=== PATIENT | male | born 1975 | race Caucasian/White ===

== ENCOUNTER → 2016-07-20 | Outpatient (CLI) | payer BC ==
[~2016-07-20] MED LIST: HYDR-3812 PO
--- NOTE | 2016-07-20 17:16 | Diagnostic Imaging Report ---
INDICATION: Chest pain-unspecified, obesity, tobacco use. PA and lateral views of the chest are obtained. COMPARISON: No previous study is available for comparison at this time. FINDINGS: Heart size and pulmonary vasculature are within normal limits, and the lungs are clear, bilaterally. IMPRESSION: Unremarkable chest. Dictated by: Dictated on workstation # [id number]
== END ==
LOC: RAD 15:47
PROVIDERS: ATTEND Internal Medicine Cardiovascular Disease
DX: R07.9 Chest pain, unspecified (principal); E66.9 Obesity, unspecified; Z72.0 Tobacco use
CPT/HCPCS: 71020

== ENCOUNTER → 2016-08-12 | Outpatient (CLI) | payer BC ==
--- NOTE | 2016-08-12 16:05 | ECHOCARDIOGRAPHY REPORT ---
DATE OF SERVICE: DATE OF EXAM: 08/12/2016 REFERRING PHYSICIAN: Dr. Raphael INDICATION: Obesity, chest pain. MEASUREMENT: LVID end diastolic 4.9, IVS thickness 1.0, LVPW thickness 1.0, left atrial diameter 3.9, ejection fraction 60%. FINDINGS: 1. Technical quality is good. 2. Left ventricle is normal in size with normal contractility, systolic function appears to be normal. Estimated ejection fraction 60%. 3. The left atrium is normal in size. No clot or thrombus were seen within the left atrium. 4. The right atrium and right ventricle are normal in size. No clot or thrombus were seen within the right side. 5. Mitral valve is normal in morphology with mild mitral regurgitation noted by color Doppler flow, no mitral valve prolapse, no mitral valve stenosis. 6. Aortic valve is trileaflet with normal opening and closing pattern. No significant aortic stenosis or regurgitation was seen. 7. Tricuspid valve is normal in morphology with mild tricuspid regurgitation noted by color Doppler flow, Doppler echo of the tricuspid valve. Estimated pulmonary artery pressure of 17 plus right atrial pressure. 8. Pulmonic valve is functioning normally. 9. No pericardial effusion. CONCLUSION: 1. Normal left ventricular size and systolic function. Estimated ejection fraction 60%. 2. Mild mitral and tricuspid regurgitation. 3. Estimated pulmonary artery pressure of 25 mmHg. Job ID: [id number] DocumentID: [id number] Dictated Date: 08/12/2016 13:16:25 Director Of Instrumental Music Date: 08/12/2016 15:09:41 Dictated By: FAHAD PARRA MD
== END ==
LOC: CARD 08:59
PROVIDERS: ATTEND Internal Medicine Cardiovascular Disease
DX: R07.9 Chest pain, unspecified (principal); E66.9 Obesity, unspecified; Z72.0 Tobacco use
CPT/HCPCS: 93017; 93306

== ENCOUNTER 2016-11-04 17:35 | Emergency (ER) | payer BC ==
[~2016-11-04] VITALS: Ht 175.3 cm; Wt 107.0 kg
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
[2016-11-04] MEDS ORDERED: TETANUS,DIPTH,PERTUSS P/F (BOOSTRIX) 0.5 ML VIAL IM STA (18:33)
[2016-11-04] MEDS ORDERED: morphine INJ 10 MG/ML 1ML (SYR OR VIAL) IM STA (18:33)
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
[2016-11-04] MEDS ORDERED: BACITRACIN OINTMENT 28 GM TUBE TOP SCH (18:45)
[2016-11-04] MEDS ORDERED: HYDR-3816 PO (19:14)
[2016-11-04 19:27] VITALS: BP 144/88
== END 2016-11-04 19:27 | disposition home or self-care (01) ==
LOC: EDUNIT# 17:35 → ER 17:37
DX: Z01.89 Encounter for other specified special examinations (principal)
CPT/HCPCS: 90471; 90715; 99284

== ENCOUNTER 2017-11-15 05:40 | Outpatient (CLI) | payer BC ==
[~2017-11-15] VITALS: Ht 175.3 cm; Wt 117.0 kg
[~2017-11-15 05:40] MED LIST changes: +ACHD5005 PO; +HYDR-34 PO; -HYDR-3812 PO
== END 2017-11-15 14:00 | disposition home or self-care (01) ==
LOC: PREOP 05:40
PROVIDERS: ATTEND Surgery
DX: Z01.818 Encounter for other preprocedural examination (principal)

== ENCOUNTER 2017-11-18 06:42 | Day surgery (SDC) | payer BC ==
[~2017-11-18] VITALS: Ht 175.3 cm; Wt 117.0 kg
[2017-11-18 07:15] VITALS: BP 136/88
[2017-11-18] MEDS ORDERED: ceFAZolin 1 GM/NS 50 ML IVPB IV ONE ×2 (07:15)
[2017-11-18] MEDS ORDERED: ceFAZolin INJECTION 1,000 MG in NS (IVPB) 50 ML IV ONE (07:30)
[2017-11-18] MEDS: LACTATED RINGERS 1,000 ML IV PRN ×2 (07:30→09:52)
[2017-11-18] MEDS ORDERED: LIDOCAINE PF 2% 5 ML (XYLOCAINE) VIAL ONE (08:24)
[2017-11-18] MEDS ORDERED: ROCURONIUM 10 MG/ML 5 ML SYRINGE IV ONE (08:24)
[2017-11-18] MEDS ORDERED: fentaNYL INJECTION 100 MCG/2 ML AMP ONE (08:24)
[2017-11-18] MEDS ORDERED: ONDANSETRON 4 MG/2 ML (SDV) Z0FRAN ONE (08:24)
[2017-11-18] MEDS ORDERED: DEXAMETHASONE 10 MG/ML (DECADRON) 1 ML VIAL ONE (08:24)
[2017-11-18] MEDS ORDERED: proPOfol 200 MG/20 ML (DIPRIVAN) VIAL IV ONE (08:24)
[2017-11-18] MEDS ORDERED: MIDAZOLAM 2 MG/2 ML (VERSED) VIAL ONE (08:26)
[2017-11-18] MEDS ORDERED: BUP/EPI 0.5% 1:200,000 (SENSORCAINE) 30 ML VIAL ONE (08:39)
--- NOTE | 2017-11-18 09:03 | Progress Note-Pre Operative ---
Pre-Operative Progress Note H&P Reviewed The H&P was reviewed, patient examined and no changes noted. Date Seen by Provider: Nov 18, 2017 Time Seen by Provider: 08:00 Date H&P Reviewed: Nov 18, 2017 Time H&P Reviewed: 08:00 Pre-Operative Diagnosis: non-reducible right inguinal hernia PRISCILLA MARQUIS MD Nov 18, 2017 9:03 am
[2017-11-18] MEDS ORDERED: oxyCODONE/APAP 5/325MG (PERCOCET 5) TABLET PO PRN (09:15)
[2017-11-18] MEDS ORDERED: ONDANSETRON 4 MG/2 ML (SDV) Z0FRAN IVP PRN ×2 (09:15→10:30)
[2017-11-18] MEDS ORDERED: morphine INJ 10 MG/ML 1ML (SYR OR VIAL) IVP PRN ×2 (09:15→10:30)
[2017-11-18] MEDS ORDERED: ACETAMINOPHEN 325 MG TABLET PO PRN (09:15)
--- NOTE | 2017-11-18 10:19 | Progress Note-Post Operative ---
Post-Operative Progess Note Surgeon (s)/Medical Records Coordinator (s) Surgeon PRISCILLA MARQUIS MD Medical Records Coordinator: none Pre-Operative Diagnosis non-reducible right inguinal hernia Post-Operative Diagnosis incarcerated right indirect inguinal hernia Procedure & Operative Findings Date of Procedure 11/18/17 Procedure Performed/Findings laparoscopic right inguinal hernia repair with mesh. Anesthesia Type GET Estimated Blood Loss Estimated blood loss (mL): minimal Specimens/Packing Specimens Removed none PRISCILLA MARQUIS MD Nov 18, 2017 10:19 am
[2017-11-18] MEDS ORDERED: SEVOFLURANE (ULTANE) 15 ML INHAL SOLN ONE (10:21)
[2017-11-18] MEDS ORDERED: HYDR-34 PO (10:22)
--- NOTE | 2017-11-18 10:22 | Discharge Inst-Surgical ---
D/C Lap Instructions-KANDIS New, Converted, or Re-Newed RX: RX on Chart Follow Up Appt in 2 weeks Activity as tolerated No driving for 24 hours No driving while on pain medications Incentive Spirometry use every 2 hours while awake Regular Diet Symptoms to Report: Fever over 101 degree F, Nausea/Vomiting Infection Signs and Symptoms to report: Increased redness, Foul odor of wound, Increased drainage Bathing instructions: May shower Operative Area Clean/Dry; Keep incision clean/dry If any problems/questions: Contact your physician or go to Emergency Room PRISCILLA MARQUIS MD Nov 18, 2017 10:22 am
[2017-11-18] MEDS ORDERED: MEPERIDINE (DEMEROL) INJ 50 MG/ML IVP PRN (10:30)
[2017-11-18] MEDS ORDERED: PROMETHAZINE INJ 25 MG/ML (PHENERGAN) AMP IVP PRN (10:30)
[2017-11-18] MEDS ORDERED: HYDROmorphone 1 MG/ML (DILAUDID) 1 ML SYRINGE IV PRN (10:30)
[2017-11-18] MEDS ORDERED: NEOSTIGMINE 1 MG/ML 5 ML SYRINGE ONE (10:32)
[2017-11-18] MEDS ORDERED: SUCCINYLCHOLINE INJ 100 MG/5 ML SYR ONE (10:32)
[2017-11-18] MEDS ORDERED: GLYCOPYRROLATE 0.2 MG/ML (ROBINUL) 2 ML VIAL ONE (10:32)
[2017-11-18 11:30] VITALS: BP 127/82
[2017-11-18 11:31] VITALS: BP 127/82
[2017-11-18 12:00] VITALS: BP 122/69
--- NOTE | 2017-11-18 12:21 | OPERATIVE REPORT ---
DATE OF SERVICE: 11/18/2017 ATTENDING PRIMARY CARE PHYSICIAN: Dr. Barbosa. PREOPERATIVE DIAGNOSIS: Symptomatic incarcerated right inguinal hernia. POSTOPERATIVE DIAGNOSIS: Symptomatic incarcerated right indirect inguinal hernia with a cord lipoma. PROCEDURE: Laparoscopic right inguinal hernia repair with mesh. SURGEON: Theodore Tang MD. ANESTHESIA: General endotracheal. ESTIMATED BLOOD LOSS: Minimal. FINDINGS: Incarcerated right indirect inguinal hernia with a cord lipoma. DISPOSITION: The patient tolerated the procedure well. INDICATIONS FOR PROCEDURE: The patient is a 42-year-old male with a palpable bulge in the right inguinal region that he had noted approximately one week prior to his office visit. He states that he was moving around in bed and felt a pain and a straining sensation in the right inguinal region. The following morning, he felt a palpable bulge. He states that he had never felt this before. He was seen by his physician and a suspected right inguinal hernia identified and verified in the office. 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 Upon examination, he has an incarcerated right inguinal hernia. DESCRIPTION OF PROCEDURE: The patient was brought to the operating room and laid supine on the table. After adequate IV pain and sedating medications and general endotracheal intubation, the abdomen and perineum were prepped and draped in a standard surgical fashion. A 0.5% Marcaine with epinephrine was then used to incise the overlying skin in the infraumbilical rim and a crescent shaped skin incision made using a 15 blade. A Veress needle inserted and the abdominal wall was retracted anteriorly using a sharp towel clamp. The opening pressure was 0 mmHg. The abdomen was insufflated to 15 mmHg pressure. The Veress needle was removed and a 10 mm trocar placed followed by a 10 mm 45-degree angle laparoscope visualizing the peritoneal cavity. A 4-quadrant abdominal exploration was performed. A right inguinal hernia was identified. There was nothing within the hernia sac; however, the bulge is still identified, most likely consistent with a cord lipoma or preperitoneal fat. There was no left inguinal hernia component. Under direct visualization, we then proceeded to place bilateral 5 mm ports after the skin and peritoneal lining were anesthetized using a 0.5% Marcaine with epinephrine and a transverse skin incision made using a 15 blade. The patient was then placed in Trendelenburg position. The peritoneal lining was then opened starting laterally towards the conjoint tendon and inguinal ligament. We then proceeded medially to Jai's ligament. We then proceeded with our inferior dissection encompassing the entire hernia sac. There was incarcerated fat that appeared to be preperitoneal fat versus a cord lipoma. This was done using blunt dissection as well as using the Sonicision. The cord and its contents identified and spread throughout the process. Good hemostasis was observed. A medium size 3DMax polypropylene mesh was then placed into the defect and the omentum placed and tacked to the Jai's ligament medially using a SorbaFix and to the inguinal ligament laterally. The peritoneal lining was then placed over the mesh and a few tacks were placed to hold it into place with visualization of good hemostasis. The 10 mm port site fascia and peritoneum were then closed under direct visualization using a Nabor-Vishnu device and 0 Vicryl suture. The abdomen was desufflated and remaining ports were removed. All skin incisions were closed using 4-0 Monocryl running subcuticular sutures. Wounds were then cleaned and covered with Dermabond. The patient tolerated the procedure well. We will start IV and oral pain medication as well as a clear liquid diet. Once he is tolerating clears, has good pain control with oral pain medications and ambulating well, we will discharge him home. He will be instructed again to do no heavy lifting or exertion for the next six weeks. Job ID: [id number] DocumentID: [id number] Dictated Date: 11/18/2017 10:33:28 Mechanical Process Engineer Date: 11/18/2017 12:20:54 Dictated By: PRISCILLA MARQUIS MD
[2017-11-18 12:30] VITALS: BP 130/83
--- NOTE | 2017-11-18 13:34 | Anesthesia-General Post-Op ---
General Patient Condition Mental Status/LOC: Same as Preop Cardiovascular: Satisfactory Nausea/Vomiting: Absent Respiratory: Satisfactory Pain: Controlled Complications: Absent Post Op Complications Complications None Follow Up Care/Instructions Patient Instructions None needed. Anesthesia/Patient Condition Patient Condition Patient is doing well, no complaints, stable vital signs, no apparent adverse anesthesia problems. No complications reported per nursing. D/C home per [facility] [place] Criteria: Yes ERIBERTO ASHFORD CRNA Nov 18, 2017 13:34
== END 2017-11-18 12:45 | disposition home or self-care (01) ==
LOC: SDC 06:42
PROVIDERS: ATTEND Surgery
DX: K40.30 Unilateral inguinal hernia, with obstruction, without gangrene, not specified as recurrent (principal); Z87.891 Personal history of nicotine dependence
CPT/HCPCS: 87081; 94664

== ENCOUNTER 2021-11-08 16:38 | Emergency (ER) | payer BC ==
[~2021-11-08] VITALS: Ht 175.3 cm; Wt 104.3 kg
[2021-11-08] MEDS ORDERED: ONDANSETRON 4 MG/2 ML (SDV) Z0FRAN IVP ONE (17:00)
[2021-11-08] MEDS ORDERED: NS IV 1000 ML 1,000 ML IV SCH (17:00)
[2021-11-08] MEDS ORDERED: fentaNYL INJ 100 MCG/2 ML AMP IVP ONE (17:00)
--- NOTE | 2021-11-08 17:01 | ED Abdominal Pain ---
General Chief Complaint: Abdominal/GI Problems Stated Complaint: ABD PAIN Source of Information: Patient, Family () Exam Limitations: No Limitations History of Present Illness Date Seen by Provider: Nov 08, 2021 Time Seen by Provider: 16:48 Initial Comments Patient is a 46-year-old male who presents to the emergency department with a chief complaint of right upper quadrant, epigastric abdominal pain onset about 4 hours ago. Patient was at a family reunion when he had a rather sudden onset of the pain. He did have some nausea and vomit one time. He remains nauseated. Denies fevers or chills. No chest pain, shortness of breath. No URI symptoms. Has had prior right inguinal hernia repair otherwise no operations on his abdomen. Nothing makes the pain any better or any worse. He had a normal bowel movement this morning. Nonblack nonbloody. No problems with urination. He has not taken anything for the pain. He was able to eat breakfast this morning, e ggs brown without any issues at the time of eating. he does occasionally have heartburn. He is not on any daily medications. No allergies to medications. All other review of systems reviewed and negative except as stated Timing/Duration: 4-6 Hours Severity/Quality: Moderate Location: RUQ, Epigastric Radiation: No Radiation Activities at Onset: Activity Associated Symptoms: Heartburn, Nausea/Vomiting Allergies and Home Medications Allergies Coded Allergies: venom-honey bee (Verified Allergy, Unknown, 01/07/15) Patient Home Medication List Home Medication List Reviewed: Yes Hydrocodone Bit/Acetaminophen (Lortab 7.5 Mg Tablet) 1 Ea Tablet, 1-2 EACH PO Q4H Prescribed by: PRISCILLA MARQUIS on 11/18/17 1022 Review of Systems Review of Systems Constitutional: see HPI EENTM: No Symptoms Reported Respiratory: No Symptoms Reported Cardiovascular: No Symptoms Reported Gastrointestinal: Abdominal Pain, Nausea, Vomiting Genitourinary: No Symptoms Reported Musculoskeletal: no symptoms reported Skin: no symptoms reported All Other Systems Reviewed Negative Unless Noted: Yes Past Hrahxnk-Rozcvq-Jkwhrl Hx Patient Social History Tobacco Use?: No Use of E-Cig and/or Vaping dev: No Substance use?: No Alcohol Use?: Yes Immunizations Up To Date Tetanus Booster (TDap): Unknown PED Vaccines UTD: No Seasonal Allergies Seasonal Allergies: No Past Medical History Surgeries: No Adenoidectomy, Tonsillectomy, Vasectomy Respiratory: No Cardiac: No Neurological: No Gastrointestinal: No Musculoskeletal: No Endocrine: No Cancer: No Psychosocial: No Integumentary: No Blood Disorders: No Adverse Reaction/Blood Tranf: No Family Medical History No Pertinent Family Hx Physical Exam Vital Signs Vital Signs - First Documented 11/08/21 16:43 Temp 36.8 Pulse 71 Resp 22 B/P (MAP) 156/107 (123) Pulse Ox 96 O2 Delivery Room Air Capillary Refill : Height/Weight/BMI Height: 5'9.00" Weight: 258lbs. 0.0oz. [id number]; 38.1 BMI Method:Stated General Appearance: WD/WN, no apparent distress HEENT: PERRL/EOMI Respiratory: lungs clear, normal breath sounds, no respiratory distress, no accessory muscle use Cardiovascular: regular rate, rhythm Peripheral Pulses: 2+ Radial Pulses (R), 2+ Radial Pulses (L) Gastrointestinal: soft, abnormal bowel sounds (hypoactive), tenderness (RUQ; positive Beverly's); No hepatomegaly Extremities: normal range of motion, non-tender, normal inspection, no pedal edema, no calf tenderness Neurologic/Psychiatric: alert, normal mood/affect, oriented x 3 Skin: normal color, warm/dry Progress/Results/Core Measures Results/Orders Lab Results Laboratory Tests Test 11/08/21 16:54 Range/Units White Blood Count 8.5 4.3-11.0 10^3/uL Red Blood Count 5.22 4.30-5.52 10^6/uL Hemoglobin 15.8 13.3-17.7 g/dL Hematocrit 46 40-54 % Mean Corpuscular Volume 88 80-99 fL Mean Corpuscular Hemoglobin 30 25-34 pg Mean Corpuscular Hemoglobin Concent 34 32-36 g/dL Red Cell Distribution Width 12.7 10.0-14.5 % Platelet Count 242 130-400 10^3/uL Mean Platelet Volume 10.0 9.0-12.2 fL Immature Granulocyte % (Auto) 0 % Neutrophils (%) (Auto) 73 42-75 % Lymphocytes (%) (Auto) 18 12-44 % Monocytes (%) (Auto) 8 0-12 % Eosinophils (%) (Auto) 1 0-10 % Basophils (%) (Auto) 0 0-10 % Neutrophils # (Auto) 6.2 1.8-7.8 10^3/uL Lymphocytes # (Auto) 1.6 1.0-4.0 10^3/uL Monocytes # (Auto) 0.6 0.0-1.0 10^3/uL Eosinophils # (Auto) 0.1 0.0-0.3 10^3/uL Basophils # (Auto) 0.0 0.0-0.1 10^3/uL Immature Granulocyte # (Auto) 0.0 0.0-0.1 10^3/uL Sodium Level 141 135-145 MMOL/L Potassium Level 3.9 3.6-5.0 MMOL/L Chloride Level 105 98-107 MMOL/L Carbon Dioxide Level 22 21-32 MMOL/L Anion Gap 14 5-14 MMOL/L Blood Urea Nitrogen 16 7-18 MG/DL Creatinine 1.10 0.60-1.30 MG/DL Estimat Glomerular Filtration Rate 84 BUN/Creatinine Ratio 15 Glucose Level 104 70-105 MG/DL Calcium Level 9.5 8.5-10.1 MG/DL Corrected Calcium 8.5-10.1 MG/DL Total Bilirubin 0.6 0.1-1.0 MG/DL Aspartate Amino Transf (AST/SGOT) 34 5-34 U/L Alanine Aminotransferase (ALT/SGPT) 48 0-55 U/L Alkaline Phosphatase 82 40-136 U/L Total Protein 7.7 6.4-8.2 GM/DL Albumin 4.9 H 3.2-4.5 GM/DL Lipase 55 8-78 U/L My Orders Orders - CASSANDRA MONTANEZ MD Ed Iv/Invasive Line Start (11/08/21 16:57) Cbc With Automated Diff (11/08/21 16:57) Comprehensive Metabolic Panel (11/08/21 16:57) Lipase (11/08/21 16:57) Ns Iv 1000 Ml (Sodium Chloride 0.9%) (11/08/21 17:00) Ondansetron Injection (Zofran Injectio (11/08/21 17:00) Fentanyl Inj (Sublimaze Injection) (11/08/21 17:00) Medications Given in ED Current Medications Medications Dose Ordered Sig/Naseem Route Start Time Stop Time Status Last Admin Dose Admin Fentanyl Citrate 50 mcg ONCE ONCE IVP 11/08/21 17:00 11/08/21 17:01 DC 11/08/21 17:05 50 MCG Ondansetron HCl 4 mg ONCE ONCE IVP 11/08/21 17:00 11/08/21 17:01 DC 11/08/21 17:04 4 MG Vital Signs/I&O 11/08/21 16:43 Temp 36.8 Pulse 71 Resp 22 B/P (MAP) 156/107 (123) Pulse Ox 96 O2 Delivery Room Air Progress Progress Note : Time: 17:33 Progress Note Patient re-examined and assessed. Pain is down to a "1". no longer nauseated. Labs completely normal. He may have a dysfunctional GB. Certainly nothing suspicous on labs to warrant furhter study/imaging, I will send him home with zofran and dicyclomine. REcc f/u with his PCP on Wednesday. INstructions for "gall bladder diet" given and return precautions. He and his waife verbalize understanding - all questions are sought and answered. Departure Impression Primary Impression: Abdominal pain Qualified Codes: R10.13 - Epigastric pain Disposition: HOME, SELF-CARE Condition: Stable Departure-Patient Inst. Decision time for Depature: 17:35 Referrals: NO,LOCAL PHYSICIAN (PCP) Primary Care Physician Patient Instructions: Abdominal Pain, Adult ED, Gallbladder Diet Add. Discharge Instructions: Drink plenty of fluids to stay well-hydrated. Take the dicyclomine 30 minutes before eating up to 4 times daily, every 6 hours. Zofran 4 mg every 8 hours as needed for nausea. If you develop a fever with worsening abdominal pain, bloody stools or any other emergent concerning symptoms please come back to the emergency room for reevaluation. Please call your primary care provider's office on Wednesday for a follow-up appointment next week. Scripts Ondansetron (Ondansetron Odt) 4 Mg Tab.rapdis 4 MG PO Q8H PRN for nausea, #20 TAB Prov: CASSANDRA MONTANEZ MD 11/08/21 Dicyclomine HCl (Dicyclomine HCl) 20 Mg Tablet 20 MG PO Q6H PRN for abdominal pain, #60 TAB Prov: CASSANDRA MONTANEZ MD 11/08/21 CASSANDRA MONTANEZ MD Nov 08, 2021 17:01
[2021-11-08 17:06] LABS: BASOPHILS % (AUTO) 0 % (0-10); EOSINOPHILS # (AUTO) 0.1 10^3/uL (0.0-0.3); EOSINOPHILS % (AUTO) 1 % (0-10); HEMATOCRIT 46 % (40-54); HEMOGLOBIN 15.8 g/dL (13.3-17.7); LYMPHOCYTES # (AUTO) 1.6 10^3/uL (1.0-4.0); LYMPHOCYTES % (AUTO) 18 % (12-44); MEAN CORPUSCULAR HEMOGLOBIN 30 pg (25-34); MEAN CORPUSCULAR HGB CONC 34 g/dL (32-36); MEAN CORPUSCULAR VOLUME 88 fL (80-99); MONOCYTES # (AUTO) 0.6 10^3/uL (0.0-1.0); MONOCYTES % (AUTO) 8 % (0-12); NEUTROPHILS # (AUTO) 6.2 10^3/uL (1.8-7.8); NEUTROPHILS % (AUTO) 73 % (42-75); PLATELET COUNT 242 10^3/uL (130-400); WHITE BLOOD COUNT 8.5 10^3/uL (4.3-11.0)
[2021-11-08 17:13] LABS: ALBUMIN 4.9 GM/DL (3.2-4.5); CHLORIDE 105 MMOL/L (98-107); POTASSIUM 3.9 MMOL/L (3.6-5.0); SODIUM 141 MMOL/L (135-145)
[2021-11-08 17:14] LABS: CALCIUM 9.5 MG/DL (8.5-10.1)
[2021-11-08 17:15] LABS: GLUCOSE 104 MG/DL (70-105); TOTAL PROTEIN 7.7 GM/DL (6.4-8.2)
[2021-11-08 17:16] LABS: CARBON DIOXIDE 22 MMOL/L (21-32)
[2021-11-08 17:17] LABS: BILIRUBIN,TOTAL 0.6 MG/DL (0.1-1.0)
[2021-11-08 17:19] LABS: ALKALINE PHOSPHATASE 82 U/L (40-136); GFR ESTIMATED 84
[2021-11-08 17:20] LABS: BUN/CREATININE RATIO 15
[2021-11-08 17:22] LABS: ALANINE AMINOTRANSFERASE 48 U/L (0-55); LIPASE 55 U/L (8-78)
[2021-11-08] MEDS ORDERED: DICY20TA PO (17:37)
[2021-11-08] MEDS ORDERED: ONDA4TAB11 PO (17:37)
[2021-11-08 17:44] VITALS: BP 137/92
== END 2021-11-08 17:44 | disposition home or self-care (01) ==
LOC: EDUNIT# 16:38 → ER 16:39
DX: R10.13 Epigastric pain (principal); R11.2 Nausea with vomiting, unspecified; Z28.310 Unvaccinated for COVID-19
CPT/HCPCS: 36415; 80053; 83690; 85025